=== PATIENT | female | born 1960 | race Caucasian/White ===

== ENCOUNTER → 2016-12-19 | Day surgery (SDC) | payer BC ==
[~2016-12-19] MED LIST: Acetaminophen/HYDROcodone 325-5 MG Tab PO PRN; Bupivacaine 0.25% 10 ML SDV INJECT ONE; Bupivacaine 0.25% 10 ML SDV ONE; Glycopyrrolate 0.2 MG/ML SDV IVPUSH ONE; Ketorolac 30 MG/ML SDV IVPUSH ONE; Levofloxacin/Dextrose 5%-Water 500 MG in Premix Bag 1 BAG IV ONE; Lidocaine 2% 20 ML MDV INJECT ONE; Lidocaine 2% 20 ML MDV ONE; Morphine 2 MG/ML Syringe ONE; Neostigmine Methylsulfate 10 MG/10 ML MDV IV ONE; Ondansetron 4 MG/2 ML SDV IV ONE; Ondansetron 4 MG/2 ML SDV IVPUSH PRN; Propofol 200 MG/20 ML SDV IV ONE; Rocuronium 50 MG/5 ML Vial IV ONE; Succinylcholine 200 MG/10 ML MDV IV ONE; fentaNYL 100 MCG/2 ML SDV IV ONE
[2016-12-19] MEDS: Lactated Ringers 1,000 ML IV SCH ×2 (10:49→14:20)
[2016-12-19] MEDS: Morphine 4 MG/ML Syringe IVPUSH PRN ×2 (13:05→14:11)
[2016-12-19 16:29] VITALS: BP 129/66
--- NOTE | 2016-12-20 08:31 | OR ---
DATE OF OPERATION: 12/18/2016 PREOPERATIVE DIAGNOSIS: CHRONIC CHOLECYSTITIS. POSTOPERATIVE DIAGNOSIS: CHRONIC CHOLECYSTITIS. SURGEON: Venancio Ha MD PROCEDURE: LAPAROSCOPIC CHOLECYSTECTOMY. ANESTHESIA: General. DESCRIPTION OF PROCEDURE: After the patient was anesthetized satisfactorily, the patient's abdomen was prepped with iodoform. The patient was given sterile drapes. A small skin incision was made in the midline. It was carried down through the skin, subcutaneous tissue, down through deep fascia. Deep fascia and peritoneum were opened. An 11-mm blunt trocar was introduced. CO2 gas was insufflated. Then, under direct camera vision, another 11-mm trocar was introduced in the subxiphoid space and 5-mm in the right upper quadrant. Gallbladder was held in position. Dissection was done. Cystic duct, cystic artery were both exposed. Junction of the cystic duct with common bile duct and gallbladder was exposed. Then, the cystic duct and cystic artery were both clipped and divided. Gallbladder was taken off its bed with the help of hook cautery and removed from the peritoneal cavity using Endopouch. Hemostasis was satisfactory. The CO2 gas was desufflated out. Various ports were removed. Then, deep fascia was closed with 0 Ethibond running sutures. Skin was closed with 4-0 Vicryl subcuticular sutures. The patient was given sterile dressing. She tolerated the procedure well and left the operating room in satisfactory condition. PAM/BEAU /[id number]
== END ==
LOC: CC.SDS 10:24
PROVIDERS: ATTEND Surgery
DX: K81.1 Chronic cholecystitis (principal); J45.909 Unspecified asthma, uncomplicated; E78.00 Pure hypercholesterolemia, unspecified; G47.33 Obstructive sleep apnea (adult) (pediatric); K21.9 Gastro-esophageal reflux disease without esophagitis; F32.9 Major depressive disorder, single episode, unspecified; Z90.49 Acquired absence of other specified parts of digestive tract; Z98.51 Tubal ligation status; Z79.899 Other long term (current) drug therapy; Z88.1 Allergy status to other antibiotic agents; Z88.2 Allergy status to sulfonamides; Z88.8 Allergy status to other drugs, medicaments and biological substances; Z72.0 Tobacco use
CPT/HCPCS: 47562; A9270; J0330; J1885; J1956; J2270; J2405; J2704; J2710; J3010; J7120

== ENCOUNTER → 2019-05-20 | Day surgery (SDC) | payer BC ==
[~2019-05-20] MED LIST changes: -Acetaminophen/HYDROcodone 325-5 MG Tab PO PRN; -Bupivacaine 0.25% 10 ML SDV INJECT ONE; -Bupivacaine 0.25% 10 ML SDV ONE; -Glycopyrrolate 0.2 MG/ML SDV IVPUSH ONE; -Ketorolac 30 MG/ML SDV IVPUSH ONE; +Lactated Ringers 1,000 ML IV SCH; -Levofloxacin/Dextrose 5%-Water 500 MG in Premix Bag 1 BAG IV ONE; -Lidocaine 2% 20 ML MDV INJECT ONE; -Lidocaine 2% 20 ML MDV ONE; +Meperidine PF 25 MG/ML Syringe IV ONE; +Meperidine PF 50 MG/ML Syringe IV ONE; +Midazolam 1 MG/ML 2 ML SDV IV ONE; -Morphine 2 MG/ML Syringe ONE; -Neostigmine Methylsulfate 10 MG/10 ML MDV IV ONE; -Ondansetron 4 MG/2 ML SDV IV ONE; -Ondansetron 4 MG/2 ML SDV IVPUSH PRN; -Propofol 200 MG/20 ML SDV IV ONE; -Rocuronium 50 MG/5 ML Vial IV ONE; -Succinylcholine 200 MG/10 ML MDV IV ONE; -fentaNYL 100 MCG/2 ML SDV IV ONE
[2019-05-20 14:14] VITALS: BP 130/78; PULSE 66
--- NOTE | 2019-05-21 08:50 | OR ---
DATE OF OPERATION: 05/20/2019 PREOPERATIVE DIAGNOSIS: HISTORY OF POLYPS. POSTOPERATIVE DIAGNOSIS: HISTORY OF POLYPS. SURGEON: Clif Cooper MD PROCEDURE: FULL-LENGTH COLONOSCOPY WITH SNARE POLYPECTOMY X4. ANESTHESIA: Conscious sedation with a total of 75 mg of Demerol and 6 mg Versed with continues O2 saturation monitoring and nurse assist. The patient's saturations remained above 90% for the entire procedure. COMPLICATIONS: None. SPECIMEN: Tubular adenomas x4 with one large approximately 1 cm tubular adenoma. RECOMMENDATIONS: Followup colonoscopy in 3 years. INDICATIONS: The patient has a prior history of colonoscopy with 4 small polyps removed approximately 5 years ago. She is seen for routine followup. DESCRIPTION OF PROCEDURE: The patient was prepped and draped, placed in the left lateral decubitus position. A lubricated Olympus colonoscope was inserted and easily advanced to the cecum. I was able to directly visualize the ileocecal valve and appendiceal orifice. The bowel prep was fine. Upon withdrawal of the scope in the ascending colon, in its mid portion, there was a small tubular adenoma, removed with the snare and suctioned into polyp trap #1. Second small 3 to 4 mm polyp also around the hepatic flexure, removed with snare and suctioned into polyp trap #2. The rest of the transverse colon and descending colon appeared unremarkable. In the sigmoid colon, the patient had 2 more polyps around the 50-60 cm komal; one was a small, again under 0.5 cm, snared and suctioned into polyp trap #3. The fourth and larger polyp was at least a centimeter in size, stalked, and easily removed in two separate pieces and both pieces were able to be suctioned into the polyp trap #4 without complication. The sigmoid colon had no other signs of any polyps, mass, ulceration, or lesions. No vascular abnormalities or signs of colitis. There were no diverticula. Rectal vault was benign. Retroflexion of the scope in the rectum showed no anal lesions. Air was suctioned and scope removed without complication. ALINA/BEAU /[id number]
== END ==
LOC: CC.SDS 11:59
PROVIDERS: ATTEND Family Medicine
DX: Z12.11 Encounter for screening for malignant neoplasm of colon (principal); D12.2 Benign neoplasm of ascending colon; D12.3 Benign neoplasm of transverse colon; D12.5 Benign neoplasm of sigmoid colon; I10 Essential (primary) hypertension; E78.00 Pure hypercholesterolemia, unspecified; K21.9 Gastro-esophageal reflux disease without esophagitis; F32.9 Major depressive disorder, single episode, unspecified; J45.909 Unspecified asthma, uncomplicated; J30.9 Allergic rhinitis, unspecified; G47.30 Sleep apnea, unspecified; R73.03 Prediabetes; M17.10 Unilateral primary osteoarthritis, unspecified knee; Z88.1 Allergy status to other antibiotic agents; Z86.010 Personal history of colon polyps; Z79.51 Long term (current) use of inhaled steroids; Z79.899 Other long term (current) drug therapy
CPT/HCPCS: 45380; 45385; J2175; J2250; J7120

== ENCOUNTER 2021-03-15 06:16 | Emergency (ER) | payer BC ==
[2021-03-15] MEDS ORDERED: Nitroglycerin 0.4 MG Tab.SL SL ONE (06:31)
[2021-03-15 06:59] LABS: CHLORIDE,CL 101 mEq/L (98-106); SODIUM,NA 138 mEq/L (136-145)
[2021-03-15] MEDS ORDERED: GI Cocktail Oral Solution 30 ML PO ONE (07:08)
--- NOTE | 2021-03-15 07:11 | EDM.PDOC ---
ED HPI GENERAL MEDICAL PROBLEM - General Chief Complaint: Chest Pain Stated Complaint: cp Time Seen by Provider: 03/15/21 07:00 Source of Information: Reports: Patient History Limitations: Reports: No Limitations - History of Present Illness INITIAL COMMENTS - FREE TEXT/NARRATIVE: This patient is a 60 year old patient that presents to the Er. Patient reports that she was laying down and about midnight started having substernal chest pain that she describes as a tightness. The patent reports the pain is minimal at a 2/10. She reports that laying flat makes pain worse, sitting up improves her pain. Patient reports she is anxious about her pain. The patient reports that she had a lot of acid reflux lately. The patient reports that her provider changed her reflux medicine lately, but she has not picked it up, she does not recall what it is. She reports this could be acid reflux, as it does feel similar. She reports she drinks a lot of soft drinks with caffeine. She reports that after work she drinks 2-3 alcoholic drinks, beer, or wine, whatever is available and she feels like. The patient denies moon, dizziness, n, v, d, f, shortness of breath, abd pain, urinary/bowel changes, cough, congestion, drainage, radiation of pain. Denies recent hospitalizations. Onset: Today Onset Date: 03/15/21 Onset Time: 00:00 Location: Reports: Chest Quality: Reports: Other (tight) Severity: Mild Improves with: Reports: Other (sitting up) Worsens with: Reports: Other (laying flat) Associated Symptoms: Reports: Chest Pain. Denies: Confusion, Cough, cough w sputum, Diaphoresis, Fever/Chills, Headaches, Loss of Appetite, Malaise, Nausea/Vomiting, Rash, Seizure, Shortness of Breath, Syncope, Weakness Treatments ROLLER HAND: Reports: NSAIDS Chest Pain Score (Numeric/FACES): 2 - Related Data Allergies Allergy/AdvReac Type Severity Reaction Status Date / Time cefaclor [From Ceclor] Allergy Unknown Hives Verified 03/15/21 06:37 erythromycin base Allergy Unknown Hives Verified 03/15/21 06:37 [Erythromycin Base] cephalexin monohydrate AdvReac Unknown Nausea and Verified 03/15/21 06:37 [From Keflex] Vomiting sulfamethoxazole AdvReac Unknown Nausea and Verified 03/15/21 06:37 [From Bactrim] Vomiting trimethoprim [From Bactrim] AdvReac Unknown Nausea and Verified 03/15/21 06:37 Vomiting Home Meds: Home Meds Atenolol [Tenormin] 50 mg PO BEDTIME 11/20/13 [History] Budesonide/Formoterol [Symbicort 160-4.5 MCG] 2 puff IH BID 11/20/13 [History] Calcium Carbonate/Vitamin D3 [Calcium 500-Vit D3 200 Caplet] 2 each PO DAILY 11/20/13 [History] Esomeprazole [NexIUM] 40 mg PO DAILY 11/20/13 [History] Ipratropium [Atrovent 0.06% Nasal [place]] 2 sprays CHRISTI TID 11/20/13 [History] Levalbuterol Tartrate [Xopenex HFA] 2 puff INH Q6H PRN 11/20/13 [History] Loratadine [Claritin] 10 mg PO DAILY PRN 11/20/13 [History] Montelukast [Singulair] 10 mg PO DAILY 11/20/13 [History] Multivitamin [Multivitamins] 1 each PO DAILY 11/20/13 [History] Naproxen Sodium [Aleve] 220 mg PO BID PRN 11/20/13 [History] PARoxetine [Paxil] 20 mg PO BEDTIME 11/20/13 [History] SUMAtriptan succinate [Imitrex] 50 mg PO Q2HR PRN 11/20/13 [History] Torsemide [Demadex] 20 mg PO DAILY PRN 11/20/13 [History] amLODIPine [Norvasc] 5 mg PO BID 11/20/13 [History] atenoloL [Tenormin] 100 mg PO BID 04/07/14 [History] Clotrimazole/Betamethasone Dip [Lotrisone Cream] 1 applic TP TID PRN 05/17/19 [History] EPINEPHrine [Epipen] 0.3 mg IM ASDIRECTED PRN 05/17/19 [History] Fluticasone Propionate [Flonase] 1 - 2 spray CHRISTI DAILY 05/17/19 [History] Hydrocortisone Valerate 1 applic TP BID PRN 05/17/19 [History] Losartan Potassium 100 mg PO DAILY 05/17/19 [History] Nystatin [Nystatin Crm] 1 applic TP ASDIRECTED PRN 05/17/19 [History] Olopatadine HCl 1 drop OP DAILY 05/17/19 [History] Potassium Chloride [K-Tab ER] 20 meq PO DAILY PRN 05/17/19 [History] Simvastatin [Zocor] 40 mg PO BEDTIME 05/17/19 [History] Triamcinolone Acetonide [Triamcinolone Acetonide 0.1% Crm] 1 applic TOP BID PRN 05/17/19 [History] Past Medical History - Past Health History Medical/Surgical History: Denies Medical/Surgical History HEENT History: Reports: Impaired Vision Cardiovascular History: Reports: Angina, High Cholesterol, Hypertension, SOB on Exertion Respiratory History: Reports: Asthma, Pneumonia, Recurrent, Sleep Apnea, SOB [employer]INE [employer]ATOR History: Reports: Psychiatric History: Reports: Depression Endocrine/Metabolic History: Reports: Hypomagnesemia - Past Surgical History HEENT Surgical History: Reports: Adenoidectomy, Cataract Surgery, Myringotomy w Tube(s), Naso-Sinus Surgery, Tonsillectomy GI Surgical History: Reports: Appendectomy, Cholecystectomy, Colonoscopy Female Surgical History: Reports: D&C, Endometrial Ablation, Oophorectomy Musculoskeletal Surgical History: Reports: Arthroscopic Knee Social & Family History - Tobacco Use Tobacco Use Status *Q: Never Tobacco User - Caffeine Use Caffeine Use: Reports: Soda - Recreational Drug Use Recreational Drug Use: No ED ROS GENERAL - Review of Systems Review Of Systems: See Below Constitutional: Reports: No Symptoms HEENT: Reports: No Symptoms Respiratory: Reports: No Symptoms Cardiovascular: Reports: Chest Pain. Denies: Dyspnea on Exertion, Edema, Lightheadedness, Palpitations, Syncope Endocrine: Reports: No Symptoms GI/Abdominal: Reports: No Symptoms. Denies: Abdominal Pain, Black Stool, Bloody Stool, Constipation, Diarrhea, Nausea, Vomiting : Reports: No Symptoms Musculoskeletal: Reports: No Symptoms Skin: Reports: No Symptoms Neurological: Reports: No Symptoms Psychiatric: Reports: Anxiety Hematologic/Lymphatic: Reports: No Symptoms Immunologic: Reports: No Symptoms ED EXAM, GENERAL - Physical Exam Exam: See Below Exam Limited By: No Limitations General Appearance: Alert, WD/WN, No Apparent Distress Eye Exam: Bilateral Eye: Normal Inspection, PERRL Ears: Normal External Exam, Normal Canal, Hearing Grossly Normal, Normal TMs Ear Exam: Bilateral Ear: Auricle Normal, Canal Normal, TM normal Nose: Normal Inspection, Normal Mucosa, No Blood Throat/Mouth: Normal Inspection, Normal Lips, Normal Teeth, Normal Gums, Normal Oropharynx, Normal Voice, No Airway Compromise Head: Atraumatic, Normocephalic Neck: Normal Inspection, Supple, Non-Tender, Full Range of Motion Respiratory/Chest: No Respiratory Distress, Lungs Clear, Normal Breath Sounds, No Accessory Muscle Use Cardiovascular: Normal Peripheral Pulses, Regular Rate, Rhythm, No Edema, No Gallop, No JVD, No Murmur, No Rub Peripheral Pulses: 2+: Radial (L), Radial (R), Posterior Tibial (L), Posterior Tibial (R) GI/Abdominal: Normal Bowel Sounds, Soft, Non-Tender, No Organomegaly, No Distention (Female) Exam: Deferred Rectal (Female) Exam: Deferred Back Exam: Normal Inspection, Full Range of Motion Extremities: Normal Inspection, Normal Range of Motion, Non-Tender, No Pedal Edema, Normal Capillary Refill Neurological: Alert, Oriented, Normal Cognition, Normal Gait, No Motor/Sensory Deficits Psychiatric: Anxious Skin Exam: Warm, Dry, Intact, Normal Color, No Rash Lymphatic: No Adenopathy Course - Vital Signs Last Recorded V/S: Last Vital Signs Temp 97.8 F 03/15/21 06:25 Pulse 71 03/15/21 06:25 Resp 18 03/15/21 07:02 BP 151/82 H 03/15/21 07:02 Pulse Ox 98 03/15/21 07:02 - Orders/Labs/Meds Orders: Active Orders 24 hr Category Date Time Status EKG Documentation Completion [RC] STAT Care 03/15/21 06:31 Active Chest 2V [CR] Stat Exams 03/15/21 06:31 Taken TROPONIN I [CHEM] Stat Lab 03/15/21 10:00 Ordered Labs: Laboratory Tests 03/15/21 03/15/21 03/15/21 Range/Units 06:31 06:35 06:35 WBC 5.3 (5.0-10.0) 10^3/uL RBC 4.83 (4.00-5.50) 10^6/uL Hgb 13.8 (12.0-16.0) g/dL Hct 40.3 (37.0-47.0) % MCV 83.4 (82.0-94.0) fL MCH 28.6 (27.0-32.0) pg MCHC 34.2 (33.0-38.0) g/dL RDW Coeff of Milagro 14.4 (11.0-15.0) % Plt Count 206 (150-400) 10^3/uL Neut % (Auto) 57.6 (35-85) % Lymph % (Auto) 31.0 (10-55) % Morton % (Auto) 9.5 (0-16) % Eos % (Auto) 1.5 (0-5) % Baso % (Auto) 0.4 (0-3) % Neut # (Auto) 3.03 (1.80-7.00) 10^3/uL Lymph # (Auto) 1.63 (1.00-4.80) 10^3/uL Morton # (Auto) 0.50 (0.00-0.80) 10^3/uL Eos # (Auto) 0.08 (0.00-0.45) 10^3/uL Baso # (Auto) 0.02 10^3/uL PT 10.0 (9.7-12.3) SEC INR 0.91 L (0.92-1.18) Sodium 138 (136-145) mEq/L Potassium 3.8 (3.5-5.0) mEq/L Chloride 101 (98-106) mEq/L Carbon Dioxide 25 (21-32) mmol/L BUN 13 (7-18) mg/dL Creatinine 0.9 (0.6-1.0) mg/dL Est Cr Clr Drug Dosing 67.89 mL/min Estimated GFR (MDRD) > 60 (>=60) mL/min Glucose 134 H (75-99) mg/dL Calcium 8.6 (8.4-10.1) mg/dL Magnesium 1.7 L (1.8-2.4) mg/dL Total Bilirubin 0.5 (0.0-1.0) mg/dL AST 19 (15-37) U/L ALT 19 (12-78) U/L Alkaline Phosphatase 144 H (46-116) U/L Lactate Dehydrogenase 170 (100-190) U/L Creatine Kinase 36 (21-215) U/L Troponin I < 0.017 (0.00-0.06) ng/mL Total Protein 6.9 (6.4-8.2) g/dL Albumin 3.8 (3.4-5.0) g/dL Lipase 80 (73-393) U/L Meds: Medications Discontinued Medications Generic Name Dose Route Start Last Admin Trade Name Jayden PRN Reason Stop Dose Admin Al Hydroxide/Mg Hydroxide 30 ml 03/15/21 07:08 Gi Cocktail Oral Solution 30 Ml PO 03/15/21 07:09 ONETIME ONE Al Hydroxide/Mg Hydroxide Confirm 03/15/21 07:35 03/15/21 07:25 Aluminum Hydroxide/Magnesium Hydroxide/Simethicone Susp 30 Ml Cup Administered 03/15/21 07:36 30 ml Dose Administration 30 ml .ROUTE .STK-MED ONE Lidocaine HCl Confirm 03/15/21 07:35 03/15/21 07:25 Lidocaine 2% Viscous Solution 15 Ml Cup Administered 03/15/21 07:36 15 ml Dose Administration 15 ml .ROUTE .STK-MED ONE Nitroglycerin 0.4 mg 03/15/21 06:31 03/15/21 06:16 Nitroglycerin 0.4 Mg Tab.Sl SL 03/15/21 06:32 0.4 mg ONETIME ONE Administration - Re-Assessments/Exams Free Text/Narrative Re-Assessment/Exam: 03/15/21 07:20 Patient reports she had no change with her CP after 1 nitro. Will order GI Cocktail with her history of acid reflux per patient. Heart Score 2 low score. Wells Score 0. Patient reports she does not like water, loves soft drinks. 03/15/21 07:52 Patient reports that after the GI Cocktail that her pain is resolved, now a 0/10. She reports it helped. She reports that she will try the medication changes that her PCP changed for her. She reports she just didnt get around to changing her new GERD medications. Will repeat the troponin, if normal will discharge home. Departure - Departure Time of Disposition: 10:30 Disposition: Home, Self-Care 01 Condition: Good Clinical Impression: Chest pain, atypical Acid reflux Qualifiers: Esophagitis presence: without esophagitis Qualified Code(s): K21.9 - Gastro- esophageal reflux disease without esophagitis Instructions: Food Choices for Gastroesophageal Reflux Disease, Adult, Nonspecific Chest Pain, Adult, [id number], Gastroesophageal Reflux Disease, Adult, [id number] Referrals: Ariel Nelson PA-C [Primary Care Provider] - Forms: ED Department Discharge Additional Instructions: Followup with your primary care provider Return to the ER for worsening of condition or any emergent concerns Follow handouts for decreasing acid, caffeine. Take the Acid Reflux medications that your primary care provider prescribed for you Sepsis Event Note (ED) - Evaluation Sepsis Screening Result: No Definite Risk - Focused Exam Vital Signs: Vital Signs Temp Pulse Pulse Resp BP BP Pulse Ox 03/15/21 07:02 18 151/82 H 98 03/15/21 06:46 16 137/87 96 03/15/21 06:30 16 148/90 H 95 03/15/21 06:25 97.8 F 71 16 193/98 H 97 03/15/21 06:16 70 193/98 H - My Orders Last 24 Hours: My Active Orders 03/15/21 06:31 EKG Documentation Completion [RC] STAT Chest 2V [CR] Stat 03/15/21 10:00 TROPONIN I [CHEM] Stat - Assessment/Plan Last 24 Hours: My Active Orders 03/15/21 06:31 EKG Documentation Completion [RC] STAT Chest 2V [CR] Stat 03/15/21 10:00 TROPONIN I [CHEM] Stat Plan: PLEASE SEE RN NOTE FOR PFSH
[2021-03-15] MEDS ORDERED: Lidocaine 2% Viscous Solution 15 ML Cup ONE (07:35)
[2021-03-15] MEDS ORDERED: Aluminum Hydroxide/Magnesium Hydroxide/Simethicone Susp 30 ML Cup ONE (07:35)
[2021-03-15 10:29] VITALS: BP 137/68; PULSE 58
== END 2021-03-15 10:29 | disposition home or self-care (01) ==
LOC: CC.ED 06:16 → SUPCPDRO 06:16 → CC.ED 10:29
DX: K21.9 Gastro-esophageal reflux disease without esophagitis (principal); E78.00 Pure hypercholesterolemia, unspecified; I10 Essential (primary) hypertension; Z88.1 Allergy status to other antibiotic agents; Z79.899 Other long term (current) drug therapy
CPT/HCPCS: 36415; 71046; 80053; 82550; 83615; 83690; 83735; 84484; 85025; 85610; 93005; 99285; A9270

== ENCOUNTER → 2021-04-02 | Day surgery (SDC) | payer BC ==
[~2021-04-02] MED LIST changes: +Ketamine 200 MG/20 ML MDV ONE; +Lidocaine 2% 5 ML SDV ONE; -Meperidine PF 25 MG/ML Syringe IV ONE; -Meperidine PF 50 MG/ML Syringe IV ONE; -Midazolam 1 MG/ML 2 ML SDV IV ONE; +Propofol 200 MG/20 ML SDV ONE; +fentaNYL 100 MCG/2 ML SDV ONE
[2021-04-02] MEDS: Lactated Ringers 1,000 ML IV SCH (07:43)
[2021-04-02 08:53] VITALS: BP 137/64; PULSE 58
--- NOTE | 2021-04-02 16:19 | OR ---
DATE OF OPERATION: 04/02/2021 PREOPERATIVE DIAGNOSIS: SUBSTERNAL CHEST PAIN. POSTOPERATIVE DIAGNOSIS: SUBSTERNAL CHEST PAIN. SURGEON: Clif Cooper MD PROCEDURE: DIAGNOSTIC ESOPHAGOGASTRODUODENOSCOPY WITH BIOPSIES X5, SUSAN. ANESTHESIA: MAC. COMPLICATIONS: None. SPECIMEN: 1. Duodenal bulb biopsy x2. 2. Antral biopsy x2. 3. Antral SUSAN. 4. Fundal polyp. FINDINGS: 1. Full-length diagnostic EGD. 2. Heterotopic gastric tissue in duodenal bulb. 3. Mild but active gastritis, antrum. 4. Benign adenomatous polyps, fundus. 5. Spontaneous gastroesophageal reflux disease without esophagitis. RECOMMENDATIONS: Ongoing aggressive therapy for patient's gastroesophageal reflux disease with appropriate cares pending path reports. INDICATIONS: The patient has been having some ongoing issues with substernal chest pain usually at night when she is lying down with suspected reflux. She did have a cardiac rule out and we elected to proceed with diagnostic EGD. DESCRIPTION OF PROCEDURE: The patient was prepped and draped, placed in the left lateral decubitus position with head of the bed elevated. A lubricated Olympus gastroscope was inserted over a bit, advanced to cricopharyngeus area, and easily intubated in the esophagus. The esophageal lining was benign in its entire course. The Z-line was crisp and sharp at 38 cm. There was no hernia present. There was a lot of spontaneous reflux but no signs of any distal esophagitis, stricturing, ulceration, or Myers's changes. The scope was advanced in the stomach, through the pylorus, and into the second portion of the duodenum. The second portion of duodenum appeared benign, appeared to be heterotopic gastric tissue throughout a good portion of the duodenal bulb. Two biopsies were taken. The scope was brought back into the stomach and retroflexed. The upper fundus and cardia were unremarkable. Upon straightening, the patient does have a few scattered adenomatous polyps in the fundus. We took one of them out in its entirety with a forceps. The antrum does have gastritis, albeit mild without any ulceration or erosions. Two biopsies of the antrum along with a CLOtest were obtained. Air was then suctioned from the stomach and the scope removed without complication. ALINA/BEAU /[id number]
== END ==
LOC: CC.SDS 07:14
PROVIDERS: ATTEND Family Medicine
DX: K31.7 Polyp of stomach and duodenum (principal); K31.89 Other diseases of stomach and duodenum; I78.1 Nevus, non-neoplastic; K21.9 Gastro-esophageal reflux disease without esophagitis; J45.909 Unspecified asthma, uncomplicated; E11.9 Type 2 diabetes mellitus without complications; I10 Essential (primary) hypertension; E78.00 Pure hypercholesterolemia, unspecified; M17.10 Unilateral primary osteoarthritis, unspecified knee; G47.30 Sleep apnea, unspecified; Z88.1 Allergy status to other antibiotic agents; Z88.8 Allergy status to other drugs, medicaments and biological substances; Z79.899 Other long term (current) drug therapy
CPT/HCPCS: 00731; 87081; J2704; J3010; J7120

== ENCOUNTER 2023-06-01 22:14 | Observation (INO) | payer BC ==
[~2023-06-01 22:14] MED LIST changes: +Fluorescein 1 MG Ophth Strip EYERT ONE; -Ketamine 200 MG/20 ML MDV ONE; -Lactated Ringers 1,000 ML IV SCH; -Lidocaine 2% 5 ML SDV ONE; -Propofol 200 MG/20 ML SDV ONE; +Tetracaine HCl/PF 0.5% 4 ML Bottle EYERT ONE; -fentaNYL 100 MCG/2 ML SDV ONE
[2023-06-02] MEDS ORDERED: Naproxen 500 MG Tab PO PRN (00:16)
[2023-06-02] MEDS ORDERED: Loratadine 10 MG Tab PO PRN (00:16)
[2023-06-02] MEDS ORDERED: Non-Formulary Medication 1 Each (Levalbuterol Tartrate [Xopenex Hfa] 15 GM Inhaler) INH PRN (00:16)
[2023-06-02] MEDS ORDERED: SUMAtriptan 50 MG Tab PO PRN (00:16)
[2023-06-02] MEDS ORDERED: Torsemide 20 MG Tab PO PRN (00:16)
[2023-06-02] MEDS ORDERED: Acetaminophen 325 MG Tab PO PRN (00:16)
[2023-06-02] MEDS ORDERED: Potassium Chloride 10 MEQ Tab.ER PO PRN (00:16)
[2023-06-02 07:12] VITALS: BP 129/59
[2023-06-02 07:18] VITALS: PULSE 68
[2023-06-02] MEDS ORDERED: Formoterol/Mometasone 200-5 MCG 8.8 GM Inhaler IH SCH (08:00)
[2023-06-02] MEDS ORDERED: amLODIPine 2.5 MG Tab PO SCH (08:00)
[2023-06-02] MEDS ORDERED: Atenolol 50 MG Tab PO SCH (08:00)
[2023-06-02] MEDS ORDERED: Losartan 100 MG Tab PO SCH (08:00)
[2023-06-02] MEDS ORDERED: Calcium Carbonate/Vitamin D3 1250 MG-5 MCG Tab PO SCH (08:00)
[2023-06-02] MEDS ORDERED: Multivitamin Tab PO SCH (08:00)
[2023-06-02] MEDS ORDERED: OLOPATADINE HCL OP SCH (08:00)
[2023-06-02] MEDS ORDERED: Montelukast 10 MG Tab PO SCH (08:00)
[2023-06-02] MEDS ORDERED: Simvastatin 40 MG Tab PO SCH (20:00)
[2023-06-02] MEDS ORDERED: PARoxetine 20 MG Tab PO SCH (20:00)
== END 2023-06-02 08:55 | disposition home or self-care (01) ==
LOC: CC.ED 22:14 → UNDOADMOB 23:15 → CC.ED 23:15 → CC.MS 23:15
PROVIDERS: ADMIT Nurse Practitioner; ATTEND Nurse Practitioner
DX: H53.8 Other visual disturbances (principal); E78.00 Pure hypercholesterolemia, unspecified; I10 Essential (primary) hypertension; J45.909 Unspecified asthma, uncomplicated; G47.30 Sleep apnea, unspecified; F32.A Depression, unspecified; I20.9 Angina pectoris, unspecified; Z88.1 Allergy status to other antibiotic agents; Z88.2 Allergy status to sulfonamides; Z88.8 Allergy status to other drugs, medicaments and biological substances; Z79.899 Other long term (current) drug therapy
CPT/HCPCS: 99223; 99238; 99284; A9270-GY; G0378; J3490

== ENCOUNTER 2023-07-29 00:02 | Emergency (ER) | payer BC ==
[2023-07-29] MEDS ORDERED: Take Home: Ciprofloxacin 500 MG Tab, 2 Tab Pack PO ONE (00:29)
[2023-07-29] MEDS ORDERED: metroNIDAZOLE 500 MG Tab PO ONE (00:32)
[2023-07-29] MEDS ORDERED: Acetaminophen/HYDROcodone 325-5 MG Tab PO ONE (00:33)
[2023-07-29 00:50] VITALS: BP 121/66; PULSE 74
== END 2023-07-29 00:57 | disposition home or self-care (01) ==
LOC: CC.ED 00:02
DX: K61.1 Rectal abscess (principal); I10 Essential (primary) hypertension; E78.00 Pure hypercholesterolemia, unspecified; Z88.2 Allergy status to sulfonamides; Z88.1 Allergy status to other antibiotic agents; Z79.899 Other long term (current) drug therapy
CPT/HCPCS: 99283; A9270-GY

== ENCOUNTER 2023-07-30 05:44 | Emergency (ER) | payer BC ==
[2023-07-30 05:56] VITALS: BP 155/68; PULSE 87
[2023-07-30] MEDS ORDERED: Lidocaine 1% 5 ML VIAL INJECT ONE (06:17)
[2023-07-30 06:44] LABS: BASOPHILS ABSOLUTE AUTO 0.03 10^3/uL (0.00-0.50); BASOPHILS PERCENT AUTO 0.4 % (0-1); EOSINOPHILS ABSOLUTE AUTO 0.05 10^3/uL (0.00-1.50); EOSINOPHILS PERCENT AUTO 0.6 % (0-6); HEMOGLOBIN 11.1 g/dL (12.0-16.0); IMMATURE GRAN ABSOLUTE AUTO 0.04 10^3/uL (0.00-0.49); IMMATURE GRAN PERCENT AUTO 0.5 % (0.0-4.9); LYMPHOCYTES PERCENT AUTO 12.9 % (24-44); MEAN CORPUSCULAR HEMOGLOBIN 27.5 pg (27.0-32.0); MEAN CORPUSCULAR HGB CONC 33.6 g/dL (32.0-36.0); MEAN CORPUSCULAR VOLUME 81.7 fL (83.0-97.0); MONOCYTES ABSOLUTE AUTO 0.73 10^3/uL (0.00-1.50); MONOCYTES PERCENT AUTO 9.4 % (0-10); NEUTROPHILS ABSOLUTE AUTO 5.93 x10^3/uL (1.80-8.00); NEUTROPHILS PERCENT AUTO 76.2 % (41-71); PLATELET COUNT,PLT 203 10^3/uL (150-400); RED BLOOD CELL COUNT 4.04 x10^6/uL (4.00-5.50); WHITE BLOOD CELL COUNT,WBC 7.8 10^3/uL (4.0-11.0)
[2023-07-30 06:56] LABS: BILIRUBIN TOTAL 0.3 mg/dL (0.0-1.0); CALCIUM 8.7 mg/dL (8.4-10.1); CREATININE 1.1 mg/dL (0.6-1.0); EST CRCL DRUG DOSING (CG) 54.18 mL/min; POTASSIUM,K 4.1 mEq/L (3.5-5.0); PROTEIN TOTAL,TP 6.7 g/dL (6.4-8.2)
[2023-07-30 07:10] LABS: APPEARANCE,URINE CLEAR (CLEAR); BILIRUBIN,URINE NEGATIVE (NEGATIVE); COLOR,URINE YELLOW (YELLOW); GLUCOSE,URINE NEGATIVE (NEGATIVE); KETONES,URINE TRACE mg/dL (NEGATIVE); LEUKOCYTE ESTERASE,URINE NEGATIVE (NEGATIVE); NITRITE,URINE NEGATIVE (NEGATIVE); OCCULT BLOOD,URINE NEGATIVE (NEGATIVE); PH,URINE 5.5 (4.5-8.0); PROTEIN,URINE NEGATIVE (NEGATIVE); UROBILINOGEN,URINE 0.2 EU/dL (0.2-1.0)
[2023-07-30] MEDS ORDERED: Take Home: Acetaminophen/HYDROcodone 325-5 MG, 2 Tab Pack PO ONE (09:24)
== END 2023-07-30 10:18 | disposition home or self-care (01) ==
LOC: CC.ED 05:44
DX: K61.1 Rectal abscess (principal); E78.00 Pure hypercholesterolemia, unspecified; I10 Essential (primary) hypertension; Z88.1 Allergy status to other antibiotic agents; Z88.2 Allergy status to sulfonamides; Z79.899 Other long term (current) drug therapy; Z90.49 Acquired absence of other specified parts of digestive tract
CPT/HCPCS: 10060; 36415; 46040; 80053; 81003; 85025; 87070; 87088; 87186; 87205; 99283; 99284; A9270; J3490

== ENCOUNTER → 2023-08-11 | Day surgery (SDC) | payer BC ==
[~2023-08-11] MED LIST changes: -Fluorescein 1 MG Ophth Strip EYERT ONE; +Lactated Ringers 1,000 ML IV SCH; -Tetracaine HCl/PF 0.5% 4 ML Bottle EYERT ONE
[2023-08-11 11:26] VITALS: BP 136/60; PULSE 77
== END ==
LOC: CC.SDS 08:47
PROVIDERS: ATTEND Family Medicine
DX: Z12.11 Encounter for screening for malignant neoplasm of colon (principal); K51.40 Inflammatory polyps of colon without complications; J45.909 Unspecified asthma, uncomplicated; F32.A Depression, unspecified; E11.9 Type 2 diabetes mellitus without complications; K21.9 Gastro-esophageal reflux disease without esophagitis; E78.00 Pure hypercholesterolemia, unspecified; I10 Essential (primary) hypertension; M85.80 Other specified disorders of bone density and structure, unspecified site; G47.30 Sleep apnea, unspecified; Z88.1 Allergy status to other antibiotic agents; Z88.8 Allergy status to other drugs, medicaments and biological substances; Z79.2 Long term (current) use of antibiotics; Z79.899 Other long term (current) drug therapy; Z98.890 Other specified postprocedural states
CPT/HCPCS: J7120

== ENCOUNTER 2023-08-22 16:44 | Emergency (ER) | payer BC ==
[2023-08-22 16:54] VITALS: BP 135/88; PULSE 112
[2023-08-22 17:29] LABS: BASOPHILS ABSOLUTE AUTO 0.03 10^3/uL (0.00-0.50); BASOPHILS PERCENT AUTO 0.6 % (0-1); EOSINOPHILS ABSOLUTE AUTO 0.02 10^3/uL (0.00-1.50); EOSINOPHILS PERCENT AUTO 0.4 % (0-6); HEMATOCRIT 39.8 % (37.0-47.0); HEMOGLOBIN 13.3 g/dL (12.0-16.0); IMMATURE GRAN ABSOLUTE AUTO 0.03 10^3/uL (0.00-0.49); IMMATURE GRAN PERCENT AUTO 0.6 % (0.0-4.9); LYMPHOCYTES ABSOLUTE AUTO 0.54 10^3/uL (0.60-5.00); LYMPHOCYTES PERCENT AUTO 11.2 % (24-44); MEAN CORPUSCULAR HGB CONC 33.4 g/dL (32.0-36.0); MEAN CORPUSCULAR VOLUME 80.9 fL (83.0-97.0); MONOCYTES ABSOLUTE AUTO 0.36 10^3/uL (0.00-1.50); MONOCYTES PERCENT AUTO 7.5 % (0-10); NEUTROPHILS ABSOLUTE AUTO 3.85 x10^3/uL (1.80-8.00); NEUTROPHILS PERCENT AUTO 79.7 % (41-71); PLATELET COUNT,PLT 191 10^3/uL (150-400); RED BLOOD CELL COUNT 4.92 x10^6/uL (4.00-5.50); WHITE BLOOD CELL COUNT,WBC 4.8 10^3/uL (4.0-11.0)
[2023-08-22] MEDS ORDERED: Sodium Chloride 0.9% 1,000 ML IV ONE ×2 (17:41→18:09)
[2023-08-22] MEDS ORDERED: Ketorolac 30 MG/ML SDV IVPUSH ONE (17:41)
[2023-08-22 17:43] LABS: ALBUMIN 3.8 g/dL (3.4-5.0); BILIRUBIN TOTAL 0.4 mg/dL (0.0-1.0); CALCIUM 9.3 mg/dL (8.4-10.1); CREATININE 1.1 mg/dL (0.6-1.0); EST CRCL DRUG DOSING (CG) 52.23 mL/min; POTASSIUM,K 3.8 mEq/L (3.5-5.0); PROTEIN TOTAL,TP 7.5 g/dL (6.4-8.2)
[2023-08-22] MEDS ORDERED: Iopamidol 755 Mg/ML 100 ML Bottle IVPUSH ONE (17:44)
[2023-08-22] MEDS ORDERED: Dexamethasone 10 MG/ML SDV IVPUSH ONE (19:24)
== END 2023-08-22 20:09 | disposition home or self-care (01) ==
LOC: CC.ED 16:44
DX: K65.4 Sclerosing mesenteritis (principal); K59.00 Constipation, unspecified; I10 Essential (primary) hypertension; E78.00 Pure hypercholesterolemia, unspecified; Z90.49 Acquired absence of other specified parts of digestive tract; Z79.899 Other long term (current) drug therapy; Z88.1 Allergy status to other antibiotic agents; Z88.2 Allergy status to sulfonamides
CPT/HCPCS: 36415; 74177; 80053; 83605; 83690; 85025; 87040; 96361; 96374; 96375; 99284; J1100; J1885; J7030; Q9967